=== PATIENT | female | born 1930 | race Caucasian/White ===

== ENCOUNTER → 2016-08-08 | Outpatient (CLI) | payer MEDICARE, OTHER ==
[~2016-08-08] MED LIST: ASPI-715 PO; ATOR40TA29 PO; CHOL10003 PO; FERR325T40 PO; IOHEXOL 350mg/ml 200ml BOTTLE ONE; LABE200T27 PO; LIDOCAINE 1% (10mg/ml) 30ml SDV ONE; LOSA1TAB96 PO; MAGN400T31 PO; MethylPREDNISolone ACETATE 80mg/1ml ONE; ONDA4TAB7 PO; POTA20TA10 PO; SERT-104 PO; [UNRECOGNIZED DRUG - CODE] PO
--- NOTE | 2016-08-08 08:01 | PDPROCED ---
Procedure DATE OF PROCEDURE 08/08/16 PREPROCEDURE DIAGNOSIS Left hip pain. POSTPROCEDURE DIAGNOSIS Left hip pain. PROCEDURE Intraarticular injection of left hip with Depo-Medrol. SURGEON Emelia Diamond MD COMPLICATIONS None. ANESTHESIA Local. INDICATIONS Please see office notes. DESCRIPTION OF PROCEDURE The patient and the left hip were identified. The patient was placed on the fluoroscopy table and the left anterior hip was prepped and draped in normal sterile fashion. Ethyl Chloride spray was used to anesthetise the skin and a 25 gauge needle was used to inject 1% lidocaine at the anterior lateral thigh. This needle was then removed and a spinal needle was introduced into the same path and again lidocaine was used to anesthetize the path down to the hip joint. Confirmation that the needle was within the capsule of the hip joint was done by placing 1 cc of Omnipaque dye under fluoroscopic imaging until the capsule lines appeared on fluoroscopy confirming that the needle was intraarticular. 160 mg of Depo-Medrol was then injected in to the hip joint. The needle was removed. The site was then cleaned with alcohol and a Band-aid was placed. The patient tolerated the procedure well. FOLLOW UP 3-4 weeks or sooner with any problems or concerns. BA DIAMOND MD Aug 08, 2016 08:00
== END ==
LOC: CATH.INJ 07:06
PROVIDERS: ATTEND Orthopaedic Surgery
DX: M16.12 Unilateral primary osteoarthritis, left hip (principal)
CPT/HCPCS: 20610; 77002; J1040; Q9967